=== PATIENT | female | born 2000 | race Caucasian/White ===

== ENCOUNTER 2024-09-01 06:32 | Day surgery (SDC) | payer BC, SELFPAY ==
[2024-09-01] VITALS (16 sets, daily range): BP systolic 96–128; BP diastolic 60–98; BMI 25.5; BMI 25.0
[2024-09-01 01:33] LABS: % Basophils 0.5 % (0-2); % Eosinophils 0.7 % (0-6); % Immature Granulocytes 0.5 % (0-0.5); % Lymphocytes 16.1 % (20.5-51.1); % Monocytes 5.8 % (1.7-9.3); % Neutrophils 76.4 % (42.2-75.2); Absolute Basophils 0.1 10^3/uL (0-0.2); Absolute Eosinophils 0.1 10^3/uL (0-0.7); Absolute Immature Granulocytes 0.1 10^3/uL (0-0.05); Absolute Lymphocytes 2.1 10^3/uL (1.2-3.4); Absolute Monocytes 0.8 10^3/uL (0.1-0.6); Hematocrit 41.5 % (37.0-47.0); Hemoglobin 14.6 g/dL (12.0-16.0); Mean Corp Hgb Conc. 35.2 g/dL (33.0-37.0); Mean Corpuscular Hgb 29.6 pg (27.0-31.0); Mean Corpuscular Volume 84.2 fL (81.0-99.0); Mean Platelet Volume 8.8 fL (7.4-10.4); Nucleated Red Blood Cells % 0 %; Platelet Count 260 10^3/uL (130-400); Red Blood Cell Count 4.93 10^6/uL (4.20-5.40); Red Cell Dist. Width 11.9 % (11.5-14.5)
--- NOTE | 2024-09-01 01:52 | ED.GENMED ---
History of Present Illness
General
Chief Complaint: Abdominal Pain
Source: patient
Exam Limitations: none
Time Seen by Provider: 09/01/24 01:29
Nursing documentation reviewed up to this point in time: agreed with
History of Present Illness
History of Present Illness:
Patient presents to ED secondary to sudden onset of abdominal pain around 6 PM yesterday evening, shortly after returning from work. Abdominal pain described as crampy, diffuse, without any alleviating or exacerbating factors. Denies fever or
chills. Denies nausea, vomiting, or diarrhea. Denies trauma. Denies difficulty urination. Patient states that she has had number of similar episodes over the past 7 months. Patient has been evaluated by GI physician and has been prescribed
dicyclomine which has taken without improvement in symptoms.
Review of Systems
Review of Systems
Allergies reviewed?: Yes
All Other Systems: ROS reviewed and negative except as documented in HPI and ROS
Constitutional: Reports no symptoms; Denies fever
Respiratory: Reports no symptoms; Denies trouble breathing
ABD/GI: Reports abdominal pain; Denies nausea, vomiting or diarrhea
: Reports no symptoms; Denies dysuria, frequency or flank pain
Musculoskeletal: Reports no symptoms; Denies back pain
Skin: Reports no symptoms
Neurological: Reports no symptoms
Phy Exam
Physical Exam
Physical Exam:
Physical Exam
General: mild distress, not acutely ill. afebrile
Head: nc/at. eomi
Neck: supple. no meningeal signs.
Heart: s1/s2 regular rate and rhythm, no murmur.
Lungs: no acute respiratory distress. clear bilaterally
Abdomen: normal bowel sounds. no distention. mild RLQ tenderness to palpation
Neuro: alert and oriented x 3. no focal neurological deficits
Skin: no rash
Psychiatric: well kept. interactive and cooperative
Extremities: no edema. no calf tenderness.
Course
Orders/Labs/Results
Orders:
Orders
09/01/24 01:21
Test Result ONCE
09/01/24 01:26
Complete Blood Count/With Diff Urgent
Comprehensive Metabolic Panel Urgent
HCG, Serum Qualitative Screen Urgent
Lipase Urgent
09/01/24 01:43
CT Abd/pel W Iv And Oral Contr Urgent
Comment:
Reason For Exam: lower abd pain
0.9% Sodium Chloride 1000 ml [Nss] 1,000 ml IV BOLUS
Iohexol [Omnipaque] See Protocol PO NOW STA
Ketorolac [Toradol] 15 mg IV NOW STA
Pantoprazole [Protonix IV] 40 mg IV NOW STA
09/01/24 04:58
Piperacillin/Tazo 3.375 Gram [Zosyn] 3.375 gram in 50 ml IV NOW
09/01/24 05:40
Admit/Transfer Patient As Directed
Co-Sign Provider:
Level of Care: Observation services
Assign to:: Medical/Surgical
Physician / Group: [facility]/General Surgery
Diagnosis: acute appendicitis
09/01/24 05:41
Code Status As Directed
Resuscitation Status: Full Code
PRN Pain Medication Management As Directed
May give lesser potent ordered pain med per pt: Yes
preference::
Protocol:: Medication orders for pain may be administered in a
manner that supports deferring to patient preference
when the pt is:
- Requesting an ordered lesser potent pain medication.
Least to most potent pain medications are defined
as: acetaminophen < NSAID < tramadol < opioids
(morphine, oxycodone, hydromorphone).
- Requesting a lesser dose of the same medication IF
ORDERED.
- Requesting a less intrusive route of administration
if both routes are prescribed by the provider (PO <
IV).
09/01/24 05:46
Acetaminophen 1000MG/100Ml [Ofirmev] 1,000 mg in 100 ml IV ONCE
Acetaminophen IV Indication:: Targeted Temp Management
09/01/24 Breakfast
NPO
Allow oral meds: No
Allow clear liquids: No
Flush (0.9% Sodium Chloride) [Flush (Nss)] See Dose Instructions IV PER PROTOCOL
09/01/24 07:33
Morphine Sulfate 2 mg IV Q2HPRN PRN
Morphine Sulfate 4 mg IV Q2HPRN PRN
Ondansetron Injectable [Zofran] 4 mg IV Q6HPRN PRN
09/01/24 07:33
Activity As Directed
Activity Level: Out of Bed-Early Mobility
Intake/ Output As Directed
Frequency: Per unit guidelines
Pneumatic Compression Sleeves As Directed
Type: Thigh high
Vital Signs As Directed
Frequency: Per unit guidelines
DX Deep Vein Thrombosis Video Routine
09/01/24 12:00
Acetaminophen 1000MG/100Ml [Ofirmev] 1,000 mg in 100 ml IV Q6HPRN
Acetaminophen IV Indication:: Targeted Temp Management
Abnormal Lab Results
09/01/24
01:26
WBC 13.0 H 10^3/uL
(4.8-10.8)
Abs Immat Gran (auto) 0.1 H 10^3/uL
(0-0.05)
Absolute Neuts (auto) 10.0 H 10^3/uL
(1.4-6.5)
Absolute Monos (auto) 0.8 H 10^3/uL
(0.1-0.6)
Neutrophils % 76.4 H %
(42.2-75.2)
Lymphocytes % 16.1 L %
(20.5-51.1)
Glucose 127 H mg/dl
(70-99)
09/01/24 01:26
09/01/24 01:26
Vital Signs
Initial and Last Documented VS:
Initial Vital Signs
Temp Pulse Resp BP Pulse Ox
98.9 F 101 18 128/90 100
09/01/24 01:12 09/01/24 01:12 09/01/24 01:12 09/01/24 01:12 09/01/24 01:12
Last Documented Vital Signs
Temp Pulse Resp BP Pulse Ox
97.7 F 85 18 104/66 97
09/01/24 12:20 09/01/24 12:25 09/01/24 12:25 09/01/24 12:25 09/01/24 12:25
MDM/Problems Addressed
MDM/Problems Addressed:
History, exam, and CT abdomen/pelvis consistent with acute appendicitis, without evidence of perforation or abscess. Patient otherwise remains hemodynamically stable.
Patient will be admitted for further evaluation and treatment.
Dr. Davis, general surgery, notified via [facility] text.
*Critical Care Note
Total Time (30-74mins, 75-104mins- exclusive of procedures): Not Applicable
ED Attending Note
-
Portions of this chart may have been created with voice recognition software.� Occasional wrong word or��sound alike� substitutions may have occurred due to the inherent limitations of voice recognition software.
Discharge Plan
Departure
Patient Disposition: Admit
Date of Disposition: 09/01/24
Time of Disposition: 05:06
Admit to: Med/Surg
Presentation/result/management discussed w/ accepting MD/DO: Hospitalist
Discharge Problem:
Acute appendicitis
Interventions
Interventions:
*Risk Screen - Suicide Last Done: 09/01/24 10:09
*General Assessment Last Done: 09/01/24 02:03
*Neglect/Abuse Screening Last Done: 09/01/24 02:03
*ED COVID-19 Vaccine History Last Done: 09/01/24 10:09
*Nursing Disposition Last Done: 09/01/24 07:09
MK-Vheqwo-Chavqpqrqb Assessment Last Done: 09/01/24 02:03
Discharge Date and Time
Discharge Date/Time: 09/01/24 07:00
[2024-09-01 01:55] LABS: ALT (SGPT) 13 U/L (0-35); AST (SGOT) 20 U/L (14-36); Albumin 4.4 g/dl (3.5-5.0); Alkaline Phosphatase 56 U/L (38-126); Blood Urea Nitrogen 13 mg/dl (7-17); Calcium 9.7 mg/dl (8.4-10.2); Carbon Dioxide 26 mmol/L (22-30); Chloride 104 mmol/L (98-107); Glucose 127 mg/dl (70-99); Lipase 71 U/L (23-300); Potassium 4.1 mmol/L (3.5-5.1); Sodium 140 mmol/L (135-145); Total Bilirubin 0.8 mg/dl (0.2-1.3); Total Protein 7.5 g/dl (6.3-8.2); eGFR > 60.00
[2024-09-01] MEDS: NSS 1000 IV ×2 (01:56→12:52)
[2024-09-01] MEDS: PROTONIX IV 40 MG IV (01:57)
[2024-09-01] MEDS: TORADOL 15 MG IV (01:57)
[2024-09-01] MEDS: OMNIPAQUE 960 ML PO (01:57)
[2024-09-01 02:03] LABS: HCG, Serum Qualitative Screen Negative
[2024-09-01] MEDS: ZOSYN 50 IV ×2 (05:14→11:00)
[2024-09-01] MEDS: FLUSH (NSS) 1 FLUSH IV (05:14)
--- NOTE | 2024-09-01 05:47 | HPS.HSE ---
Addendum entered and electronically signed by Daniel Davis MD 09/01/24 08:34:
Patient seen and examined independently of admitting nurse practitioner. Agree with documented H&P with additions noted here.
HPI: 24-year-old female with acute onset of abdominal pain localized right lower quadrant. Symptoms started yesterday evening at approximately 6 PM after work and rapidly increased in severity with localization to the right lower quadrant. Mild
nausea and anorexia but no vomiting. Bowels moving regularly. No previous symptoms similar.
She denies any significant active past medical history. Past surgical history only notable for tonsils.
AFVSS
NAD AAO x 3
ABD: Soft, nondistended, tenderness palpation with positive Rovsing sign and rebound/guarding at McBurney's point
CT imaging reviewed. Distended appendix with inflammatory changes at least 1 or 2 fecaliths. No evidence of organizing abscess. No additional incidental finding of clinical significance.
Assessment: 24-year-old female with acute appendicitis.
Reviewed with patient and mother at bedside history, examination and CT imaging consistent with acute appendicitis. Discussed both operative and nonoperative management options and associated risks/benefits of approaches. Patient is in agreement to
proceed with appendectomy.
Laparoscopic appendectomy reviewed in detail with the patient. Discussed operative technique, alternative management options, benefits and potential risks such as but not limited to bleeding, infectious or wound healing complications, iatrogenic
injury to surrounding viscera and staple line leakage. Discussed the typical postoperative recovery pending operative findings.
Any of the patient's concerns or questions were fully addressed and informed consent was obtained.
Plan: OR for laparoscopic appendectomy.
Empiric antibiotic coverage with Zosyn.
Nothing by mouth, IV fluid hydration and supportive care awaiting operative room availability.
SCDs for DVT prophylaxis
Original Note:
Family Physician
-
Family Physician: Sarabjit Moreno
Chief Complaint
-
abdominal pain
History of Present Illness
Very pleasant 24 year old female who is here with her mother due to intractable abdominal pain, unprovoked which began suddenly last evening when she returned from work. She has been experiencing intermittent abdominal pain over the past few months
and has been treated conservatively for IBS with dicyclomine without improvement by her GI specialist. 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 No associated symptoms of N/V/D dysuria, CHEEK, fever chills, CP or SOB. She takes
no medications on a regular basis and is without significant PMH.
Medical History
Past Medical History
Past Medical History: Reports None
Past Surgical History: Reports None
Social History
Tobacco: Non-smoker
Alcohol: None
Drug: None
Personal: Single
Living: With Family
Employment: Employed
Family History
Family History: Not pertinent
Allergies / Home Medications
Allergies reflects when Allergies were last updated in [employer].
Home Medications with original date entered in [employer]
Allergy/Medication List:
Allergies
Allergy/AdvReac Type Severity Reaction Status Date / Time
No Known Allergies Allergy Unverified 09/01/24 01:12
Home Medications
No Meds [No Current Medications] 09/01/24
Review of Systems
-
History Source: Patient and Family
Constitutional: Reports No Symptoms
EENT: Reports No Symptoms
Respiratory: Reports No Symptoms
Cardiac: Reports No Symptoms
Abdomen/GI: Reports Abdominal Pain
: Reports No Symptoms
Musculoskeletal: Reports No Symptoms
Skin: Reports No Symptoms
Neurological: Reports No Symptoms
Endocrine: Reports No Symptoms
Hematologic/Lymphatic: Reports No Symptoms
Psych: Reports No Symptoms
Physical Exam
Vital Signs
Vital Signs
Temp Pulse Resp BP Pulse Ox
98.9 F 75 18 120/78 99
09/01/24 01:12 09/01/24 04:30 09/01/24 04:30 09/01/24 04:30 09/01/24 04:30
Physical Exam
General: Well Developed, Well Nourished and Comfortable
HEENT: NormoCephalic, Moist mucous membranes and Atraumatic
Respiratory: Clear and Non Labored Respirations
Cardiac: S1/S2 and Regular Rhythm
Breast: Deferred by me
GI: Soft, Non Distended and Tender
Rectal: Deferred by Provider
Genito-urinary: Clear Urine
Musculoskeletal: No Clubbing, No Cyanosis and No Edema
Skin: Warm and Dry
Neuro: Awake, Alert, AO x 3 and No Motor Deficits
Hematologic/Lymphatic: No Lymphadenopathy
Psych: Calm
Laboratory Results
-
09/01/24:
09/01/24:
Laboratory Results
Total Bilirubin 0.8 mg/dl (0.2-1.3) 09/01/24:
AST 20 U/L (14-36) 09/01/24:
ALT 13 U/L (0-35) 09/01/24:
Alkaline Phosphatase 56 U/L (38-126) 09/01/24:
Lipase 71 U/L (23-300) 09/01/24:
Data Reviewed
-
CT Scan: Report Reviewed by me
Lab Data: Labs Reviewed by me
Old Records: Reviewed
Impression/Plan
-
IMPRESSION: Acute appendicitis
PLAN: 24 year old female with sudden onset last evening of lower abdominal pain.
*Acute appendicitis: NPO, Ofirmiv/Morphine/Zofran/Zosyn
*DVT prophylaxis: TEDS, SCDs, OOB
*Disposition: General surgery service.
[2024-09-01] MEDS: OFIRMEV 100 IV (06:11)
--- NOTE | 2024-09-01 07:10 | EDRN ---
THis nurse did not provide any care as pt was admitted and transferred to in pt room at 0700
--- NOTE | 2024-09-01 08:34 | W.SUR.PREOP ---
Pre-Operative Surgical Note
-
I have examined this patient prior to the performance of the scheduled procedure.
The patient's condition is unchanged from the time of the current History and
Physical and the patient is able to undergo the scheduled procedure.
--- NOTE | 2024-09-01 11:39 | W.IMMPOSTOP ---
Surgical Immed Post Op Note
-
Primary Surgeon: Daniel Davis
Assisting Surgeon: None
Pre-op Diagnosis: Acute appendicitis
Post-op Diagnosis: Acute appendicitis
Procedure Performed: Laparoscopic appendectomy
Anesthesia Type: GETA +0.25% Marcaine with epinephrine
Specimen / Cultures: Appendix/none
Estimated Blood Loss: 4 mL
Complications: None immediate
Operative Findings: Acutely inflamed and distended appendix with reactive surrounding free fluid. No purulence. No abscess. No disruption of appendix with appendectomy. Mesoappendix divided with harmonic for hemostasis. Base of the appendix
taken flush with cecum utilizing Endo TOM kearns 45 mm articulating stapler. Appendix extracted at suprapubic 12 mm trocar site.
--- NOTE | 2024-09-01 11:40 | OR.RPT ---
Operative Report
Operative Report
Date of operative procedure: 09/01/2024
Primary Surgeon: Daniel Davis MD
Flume Maker: None
Pre-op Diagnosis: Acute appendicitis
Post-op Diagnosis: Acute appendicitis
Procedure Performed: Laparoscopic appendectomy
Anesthesia: GETA +0.25% Marcaine
Specimen / Cultures: Appendix/none
Estimated Blood Loss: 4 mL
Complications: None immediate
Indications for Operative Procedure: The patient is an otherwise healthy 24-year-old female who was in her usual baseline state of health until yesterday evening when she developed abdominal pain which rapidly progressed in severity and began
localized in the right lower quadrant. Nausea with anorexia but no vomiting. Emergency department workup and CT imaging all consistent with acute appendicitis. I reviewed treatment options with the patient preoperatively including operative
versus nonoperative management and she was in agreement to proceed with appendectomy. The anticipated surgical procedure laparoscopic appendectomy was reviewed in detail with the patient preoperatively obtaining informed consent. Please see HPI
for details regarding our discussions and the consenting process.
Brief Summary of Operative Findings: Acutely inflamed and distended appendix with reactive surrounding free fluid. No purulence. No abscess. No disruption of appendix with appendectomy. Mesoappendix divided with harmonic for hemostasis. Base
of the appendix taken flush with cecum utilizing Endo TOM kearns 45 mm articulating stapler. Appendix extracted at suprapubic 12 mm trocar site.
Operation in Detail: The patient was identified in the preoperative holding area. I confirmed the anticipated surgical procedure with the patient at bedside preoperatively. She was interviewed by the anesthesia and nursing staff then brought back
to the operating room. The patient was placed on the operating table in supine position. The right upper extremity was carefully placed on a padded arm board and the left upper extremity was carefully padded and tucked at her side. Pneumatic
compression boots were on the bilateral lower extremities. Following induction of general endotracheal anesthesia the patient was administered next dose of Zosyn. The patient's anterior abdominal wall was now widely and sterilely prepped with
ChloraPrep and then draped in the usual manner. The surgical time out was completed and the procedure was confirmed.
I initially proceeded with Veress needle insufflation at the left subcostal midclavicular line location. Once insufflated to 12 mmHg pressure then a left lower quadrant lateral 5 mm trocar was placed with optical viewing entry. The laparoscope was
inserted. There was no evidence of iatrogenic injury from access and the Veress needle was withdrawn. An infraumbilical 5 mm trocar was placed followed by a suprapubic 12 mm trocar, all under direct visualization. The patient was now transition
into mild Trendelenburg and right side up to aid in exposure of the right lower quadrant.
The cecum and terminal ileum were visualized in the right lower quadrant. They were carefully grasped with an atraumatic grasper and retracted to expose the base of the cecum. The appendix was immediately identified. It was dilated, injected and
indurated consistent with acute appendicitis. There were minimal inflammatory adhesions to the appendix. There was some serous clear free fluid in the pelvis which was later evacuated. No purulence. No perforation. No exudate or abscess. The
mesoappendix was now carefully exposed. A harmonic was utilized to carefully divide the mesoappendix for hemostasis until the base of the appendix was fully exposed. There was no significant thickening or inflammation at the base of the cecum.
The appendix was now divided flush with the cecum utilizing an Endo TOM 45 mm kearns articulating stapler. The appendix was placed within the specimen retrieval bag intact.
The surgical field was now inspected. The staple line was complete, intact along the entire length and hemostatic. Inspection of the pelvis was unremarkable. Residual serous free fluid was suctioned out with suction catheter. The patient was now
returned to neutral position and the cecum and terminal ileum were reflected back into their typical anatomic position. There were no additional incidental findings.
The appendix was extracted at the 12 mm trocar site with slight dilation of the fascia. Insufflation gas was fully evacuated and the 5 mm trocar sites were removed. Fascia at the 12 mm trocar site was closed under direct visualization with
interrupted 0 Vicryl stitches. Skin was closed at all of the laparoscopic surgical sites with buried interrupted 4-0 Monocryl. Sterile surgical glue dressings were applied to all surgical sites. The patient tolerated the procedure well and was
transferred to the recovery unit for routine postoperative monitoring.
--- NOTE | 2024-09-01 13:48 | CM ---
Pt admitted for acute appendicitis
Off floor in OR; spoke with pts parents to complete initial assessment
Lives with her parents in a 2 [address]; 3STE
Independent, employed FT, drives
DME - none
HH - no past hx
Has ride at discharge
PCP - Sarabjit Moreon
Pharm - [facility]
Plan - anticipate home no needs
[2024-09-01] MEDS: TYLENOL 1000 MG PO (14:19)
--- NOTE | 2024-09-01 15:09 | W.DS.TRANS ---
DC Summary - [employer]
-
Discharge Instructions:
Discharge Diagnosis/Procedures Acute appendicitis. Laparoscopic appendectomy
Diet As tolerated,Regular
Additional Diets Smaller meals initially after surgery as
abdominal bloating and distention, for the first
few days
Activity No strenuous activity
Additional Activity No lifting over 15 to 20 pounds for 3 weeks
postoperatively.
Driving Restrictions No driving for 24 hours
Wound Care Glue at surgical sites typically peels off in 2
to 3 weeks
Instructions:
Stand-Alone Forms:
Changes to Home Medications: No
Discharge Medications:
DC Medications w/original date entered in [id number]
acetaminophen 500 mg tablet (Tylenol Extra Strength) 1,000 mg (2 x 500 mg) PO Q6HPRN PRN mild pain #1 tab 09/01/24
ibuprofen 200 mg tablet 400 - 600 mg (2 - 3 x 200 mg) PO Q6HPRN PRN moderate pain #1 tab 09/01/24
polyethylene glycol 3350 17 gram/dose oral powder (Miralax) 4 g PO DAILY PRN Constipation #119 grams 09/01/24
Home Medication Changes
Pending Results: No
== END 2024-09-01 17:18 | disposition home or self-care (01) ==
LOC: PACU 06:32
PROVIDERS: ATTENDING PHYSICIAN Surgery; EMERGENCY PHYSICIAN Emergency Medicine; FAMILY PHYSICIAN Family Medicine
DX: K35.80 Unspecified acute appendicitis (principal)
CPT/HCPCS: 44970; 88304; 74177; 80053; 83690; 84703; 85025; 96361; 96365; 96375; 99285; G0378; Q9967

== ENCOUNTER → 2025-01-09 13:10 | Outpatient (REF) | payer BC, SELFPAY | LOC: CPAP 13:10 | PROVIDERS: ATTENDING PHYSICIAN Nurse Practitioner Family | DX: Z01.419 Encounter for gynecological examination (general) (routine) without abnormal findings (principal) | CPT/HCPCS: 87491; 87591 ==

== ENCOUNTER → 2025-01-16 07:58 | Outpatient (REF) | payer BC, SELFPAY | LOC: HWRAD 07:58 | PROVIDERS: ATTENDING PHYSICIAN Nurse Practitioner Family; FAMILY PHYSICIAN Family Medicine | DX: N94.10 Unspecified dyspareunia (principal); N93.0 Postcoital and contact bleeding | CPT/HCPCS: 76830; 76856 ==

== ENCOUNTER → 2025-03-27 09:02 | Outpatient (REF) | payer BC, SELFPAY | LOC: HWRCS 09:02 | PROVIDERS: ATTENDING PHYSICIAN Internal Medicine; FAMILY PHYSICIAN Nurse Practitioner Family | DX: R07.9 Chest pain, unspecified (principal); R00.2 Palpitations | CPT/HCPCS: 93306 ==

== ENCOUNTER → 2025-03-30 09:46 | Outpatient (REF) | payer BC, SELFPAY | LOC: RCS 09:46 | PROVIDERS: ATTENDING PHYSICIAN Internal Medicine; FAMILY PHYSICIAN Nurse Practitioner Family | DX: R07.9 Chest pain, unspecified (principal); R00.2 Palpitations | CPT/HCPCS: 93225; 93226 ==